=== PATIENT | male | born 1965 | race Caucasian/White ===

== ENCOUNTER 2020-01-25 08:29 | Emergency (ER) | payer OTHER, SELFPAY ==
[2020-01-25 09:03] VITALS: BP 167/95; PULSE 83; RESP 16; TEMP 36.8; O2SAT 99
--- NOTE | 2020-01-25 09:16 | ED.URI ---
HPI - URI/Sore Throat General Chief Complaint: Upper Respiratory Infection Stated Complaint: ear pain Time Seen by Provider: 01/25/20 09:03 Source: patient and RN notes reviewed Mode of arrival: ambulatory Limitations: no limitations History of Present Illness HPI Narrative: Patient presents today complaining of intermittent right ear pain x1 week. The pain is not currently present, but states he knows he will have pain this afternoon. Denies hearing loss or drainage from the ear. He has been taking Tylenol with mild relief. Denies any additional symptoms to include headache, fever, cough, congestion or rhinorrhea, sore throat. MD elicited complaint: other (Right ear pain) Related Data Home Medications Medication Instructions Recorded Confirmed losartan-hydrochlorothiazide 1 tablet PO DAILY 01/25/20 01/25/20 Allergies Allergy/AdvReac Type Severity Reaction Status Date / Time No Known Allergies Allergy Verified 01/25/20 09:05 Review of Systems Review of Systems: Narrative: CONSTITUTIONAL: Denies body aches, fever, chills, or sweats. EYES: Denies visual changes, redness, or discharge. ENT: Denies rhinorrhea, congestion, sore throat. + Intermittent right ear pain?none currently CARDIOVASCULAR: Denies chest pain, palpitations, or edema. RESPIRATORY: Denies cough or dyspnea. GASTROINTESTINAL: Denies abdominal pain, nausea, vomiting, or diarrhea. GENITOURINARY: Denies dysuria or hematuria. SKIN: Denies rash, itching, or wounds. MUSCULOSKELETAL: Denies back pain, joint pain, or myalgia. NEUROLOGIC: Denies headache, numbness, tingling, or weakness. PSYCH: Denies depression or anxiety. [facility] Past Medical History Medical History (Updated 01/25/20 @ 09:28 by Alice Landaverde, [facility], ) Hypertension Social History Social History Gender identity (if verbalized by the patient): Male Comments At time of signature, I have reviewed and agree with nursing past medical, surgical, social and family history unless otherwise noted. Please see nursing chart for further information. There is no relevant family history pertinent to the presenting complaint Exam Narrative: Exam Narrative: GENERAL: Well-appearing, well-nourished, and in no acute distress. HEAD: Normocephalic, atraumatic. EYES: EOMI. No redness or drainage. Conjunctivae normal. ENT: Mucous membranes pink and moist. Nares clear. No rhinorrhea. TMs normal bilaterally. Moderate clear fluid collection behind the right TM without evidence of infection. Throat normal. Uvula midline. NECK: Normal AROM. Supple. No lymphadenopathy. CHEST: No respiratory distress. Clear to auscultation. HEART: Regular rate and rhythm. No murmur appreciated. Normal peripheral pulses. EXTREMITIES: Normal range of motion. No edema. SKIN: Warm, dry, no rash. Capillary refill normal. Normal skin turgor. NEURO: No focal deficits. Alert and oriented x3. Gait steady. PSYCH: Normal affect. No signs of depression or anxiety. Course Vital Signs Vital signs: Vital Signs Temperature 98.3 F 01/25/20 09:03 Pulse Rate 83 01/25/20 09:03 Respiratory Rate 16 01/25/20 09:03 Blood Pressure 167/95 H 01/25/20 09:03 Pulse Oximetry 99 01/25/20 09:03 Temperature 98.3 F 01/25/20 09:03 Pulse Rate 83 01/25/20 09:03 Respiratory Rate 16 01/25/20 09:03 Blood Pressure 167/95 H 01/25/20 09:03 Pulse Oximetry 99 01/25/20 09:03 Reviewed. Pt has been instructed to follow up with his PCP regarding his elevated blood pressure today. MDM - URI/Sore Throat Differential Diagnosis Differential diagnosis: Likely otitis media and other (Otitis externa, ruptured TM, serous otitis, eustachian tube dysfunction, cerumen impaction) Critical Care Time Critical Care Time Critical Care Time: No Discharge Plan Discharge Clinical Impression: Acute serous otitis media of right ear Qualifiers: Recurrence: not specified as recurrent Qualified Code(s): H65.01 - Acute serous otitis
== END 2020-01-25 09:21 | disposition home or self-care (01) ==
PROVIDERS: Emergency Provider Nurse Practitioner; PCP Internal Medicine
DX: H65.01 Acute serous otitis media, right ear (principal); I10 Essential (primary) hypertension
CPT/HCPCS: 99201; G0463